=== PATIENT | female | born 1955 | race Hispanic/Latino ===

== ENCOUNTER → 2024-12-23 | Outpatient (REF) | payer MEDICARE ==
[~2024-12-23] MED LIST: FERROUS SULFAT325 MG PO; FUROSEMIDE40 MG PO; LOSARTAN POTAS100 MG PO; METOPROLOL SUCC50 MG PO
[2024-12-23 12:53] LABS: BASOPHILS # (AUTO) 0.1 (0.0-0.1); BASOPHILS % 0.8 % (0.0-1.0); EOSINOPHILS # (AUTO) 0.2 (0.0-0.4); EOSINOPHILS % 2.4 % (0.0-6.0); HEMATOCRIT 39.8 % (34.2-44.1); HEMOGLOBIN 12.5 g/dL (12.0-16.0); LYMPHOCYTES # (AUTO) 1.6 (1.0-3.2); LYMPHOCYTES % 24.9 % (18.0-39.1); MEAN CORPUSCULAR HEMOGLOBIN 26.4 pg (28-32); MEAN CORPUSCULAR HGB CONC 31.4 g/dL (31-35); MEAN CORPUSCULAR VOLUME 84.1 fL (81-99); MONOCYTES # (AUTO) 0.6 (0.2-0.8); MONOCYTES % 8.3 % (4.4-11.3); NEUTROPHILS # (AUTO) 4.2 (2.1-6.9); NEUTROPHILS % 63.4 % (38.7-80.0); PLATELET COUNT 256 x10e3/uL (140-360); RED BLOOD COUNT 4.73 x10e6/uL (3.6-5.1); RED CELL DISTRIBUTION WIDTH 23.7 % (11.7-14.4); WHITE BLOOD COUNT 6.59 x10e3/uL (4.8-10.8)
== END ==
LOC: LAB 08:00 → EDSTATUS 12-26 12:30
PROVIDERS: ATTEND Internal Medicine Gastroenterology
DX: Z01.810 Encounter for preprocedural cardiovascular examination (principal); Z01.812 Encounter for preprocedural laboratory examination; D64.9 Anemia, unspecified; Z12.11 Encounter for screening for malignant neoplasm of colon
CPT/HCPCS: 36415; 85025; 93005

== ENCOUNTER → 2025-03-06 | Day surgery (SDC) | payer MEDICARE ==
[2025-03-04 13:52] LABS: BASOPHILS % 0.5 % (0.0-1.0); EOSINOPHILS % 3.4 % (0.0-6.0); LYMPHOCYTES % 30.5 % (18.0-39.1); MONOCYTES % 7.2 % (4.4-11.3); NEUTROPHILS % 58.0 % (38.7-80.0); RED CELL DISTRIBUTION WIDTH 14.3 % (11.7-14.4)
[~2025-03-06] MED LIST changes: +FENTANYL CITRATE/PF 100MCG/2 ML INJ ONE; +HYOSCYAMINE SULFATE 0.5 MG/ML INJ ONE; +LIDOCAINE HCL 2% LOCAL INJ 5 ML SDV VIAL INJ ONE; +ONDANSETRON HCL INJ 2MG/ML 2ML 2 MG/ML VIAL ONE; +PROPOFOL IV EMULSION 10 MG/ML 20 ML VIAL ONE
[2025-03-06] MEDS: LACTATED RINGER'S 1,000 ML ONE (10:53)
[2025-03-06 13:25] VITALS: TEMP 98.3
[2025-03-06 14:25] VITALS: BP 157/74; PULSE 79; RESP 16; O2SAT 96
== END | disposition home or self-care (01) ==
LOC: OR 09:34
PROVIDERS: ATTEND Internal Medicine Gastroenterology
DX: Z12.11 Encounter for screening for malignant neoplasm of colon (principal); D12.3 Benign neoplasm of transverse colon; K63.5 Polyp of colon; K57.30 Diverticulosis of large intestine without perforation or abscess without bleeding; K62.1 Rectal polyp; K64.8 Other hemorrhoids; K29.40 Chronic atrophic gastritis without bleeding; K31.89 Other diseases of stomach and duodenum; K76.0 Fatty (change of) liver, not elsewhere classified; D64.9 Anemia, unspecified; I10 Essential (primary) hypertension; Z01.812 Encounter for preprocedural laboratory examination; Z79.899 Other long term (current) drug therapy
CPT/HCPCS: 36415; 43239; 45385; 85025; J1980; J2003; J2405; J2470; J2704; J3010; J7121; 45378

== ENCOUNTER → 2025-04-29 | Outpatient (REF) | payer MEDICARE ==
[~2025-04-29] MED LIST changes: -FENTANYL CITRATE/PF 100MCG/2 ML INJ ONE; -HYOSCYAMINE SULFATE 0.5 MG/ML INJ ONE; -LIDOCAINE HCL 2% LOCAL INJ 5 ML SDV VIAL INJ ONE; -ONDANSETRON HCL INJ 2MG/ML 2ML 2 MG/ML VIAL ONE; -PROPOFOL IV EMULSION 10 MG/ML 20 ML VIAL ONE
== END ==
LOC: DX 07:53
PROVIDERS: ATTEND Nurse Practitioner
DX: D64.89 Other specified anemias (principal)
CPT/HCPCS: 74250